=== PATIENT | female | born 1945 | race Caucasian/White ===

== ENCOUNTER 2024-09-23 09:32 | Emergency (ER) | payer MEDICARE ==
[~2024-09-23] VITALS: Ht 154.9 cm; Wt 58.5 kg
[2024-09-23] MEDS ORDERED: NEXIUM40 MG PO (09:47)
[2024-09-23] MEDS ORDERED: ELIQUIS5 M1 PO (09:48)
[2024-09-23] MEDS ORDERED: MIRTAZAPINE15 M2 PO (09:48)
[2024-09-23] MEDS ORDERED: LEVOXYL50 MCG PO (09:49)
[2024-09-23] MEDS ORDERED: ALLOPURINOL100 MG PO (09:49)
[2024-09-23] MEDS ORDERED: ATORVASTATIN CA10 M1 PO (09:50)
[2024-09-23 10:21] LABS: BILIRUBIN Negative (Negative); BLOOD 2+ (Negative); CLARITY Cloudy (Clear); COLOR Yellow (Yellow); GLUCOSE Negative (Negative); KETONE Negative (Negative); LEUKO ESTERASE 3+ (Negative); NITRITE Negative (Negative); SPECIFIC GRAVITY 1.015 (1.001-1.030)
[2024-09-23 10:31] LABS: BACTERIA 3+; WBC TNTC wbc/hpf (0-5)
[2024-09-23 10:32] LABS: CALCIUM OXALATE CRYSTALS Trace; RBC 21-30 rbc/hpf (0-2)
[2024-09-23] MEDS ORDERED: ACETAMINOPHEN 325 MG TAB PO ONE (11:00)
[2024-09-23] MEDS ORDERED: Ciprofloxacin Hydrochloride 500 MG TAB PO ONE (11:05)
[2024-09-23] MEDS ORDERED: CIPRO500 MG PO (11:29)
== END 2024-09-23 12:10 ==
LOC: ED 09:32
PROVIDERS: Internal Medicine
DX: N39.0 Urinary tract infection, site not specified (principal); K21.9 Gastro-esophageal reflux disease without esophagitis; E03.9 Hypothyroidism, unspecified; Z79.899 Other long term (current) drug therapy; Z88.5 Allergy status to narcotic agent